=== PATIENT | female | born 1985 | race African-American/Black ===

== ENCOUNTER 2017-07-11 19:45 | Observation (INO) | payer OTHER ==
[~2017-07-11] VITALS: Ht 149.9 cm; Wt 50.8 kg
[2017-07-11 20:32] LABS: BASOPHILS # (AUTO) 0.1 (0.0-0.1); BASOPHILS % 0.5 % (0.0-1.0); EOSINOPHILS # (AUTO) 0.2 (0.0-0.4); EOSINOPHILS % 2.3 % (0.0-6.0); HEMATOCRIT 32.1 % (34.2-44.1); HEMOGLOBIN 9.1 g/dL (12.0-16.0); LYMPHOCYTES # (AUTO) 3.1 (1.0-3.2); LYMPHOCYTES % 30.5 % (18.0-39.1); MEAN CORPUSCULAR HGB CONC 28.3 g/dL (31-35); MEAN CORPUSCULAR VOLUME 70.4 fL (81-99); MONOCYTES # (AUTO) 0.6 (0.2-0.8); NEUTROPHILS # (AUTO) 6.2 (2.1-6.9); NEUTROPHILS % 60.4 % (38.7-80.0); PLATELET COUNT 452 x10e3/uL (140-360); RED BLOOD COUNT 4.56 x10e6/uL (3.6-5.1); RED CELL DISTRIBUTION WIDTH 17.7 % (11.7-14.4)
[2017-07-11 20:36] LABS: BILIRUBIN,URINE NEGATIVE (NEGATIVE); CLARITY,URINE CLEAR (CLEAR); COLOR,URINE YELLOW (YELLOW); KETONES,URINE NEGATIVE (NEGATIVE); LEUKOCYTE ESTERASE ,URINE TRACE (NEGATIVE); NITRITE,URINE NEGATIVE (NEGATIVE); URINE UROBILINOGEN 0.2 mg/dL (0.2 - 1)
[2017-07-11 20:38] LABS: PROTEIN,URINE DIPSTICK 1+ (NEGATIVE)
[2017-07-11 20:46] LABS: INR 1.13; PROTHROMBIN TIME 13.6 seconds (11.9-14.5)
[2017-07-11 20:47] LABS: PARTIAL THROMBOPLASTIN TIME 31.8 seconds (23.8-35.5)
[2017-07-11 20:54] LABS: BACTERIA,URINE FEW /HPF; EPITHELIAL CELLS,URINE FEW /LPF
[2017-07-11 20:55] LABS: ALANINE AMINOTRANSFERASE 11 IU/L (0-55); ALBUMIN/GLOBULIN RATIO 0.9 (0.8-2.0); ALKALINE PHOSPHATASE 89 IU/L (40-150); ANION GAP 13.8 mmol/L (8-16); BLOOD UREA NITROGEN 7 mg/dL (7-26); BUN/CREATININE RATIO 9 (6-25); CALCIUM 9.4 mg/dL (8.4-10.2); CARBON DIOXIDE 22 mmol/L (22-29); CHLORIDE 108 mmol/L (98-107); CREATININE, SERUM 0.79 mg/dL (0.57-1.11); EST GLOMERULAR FILTRATION RATE > 60 ML/MIN (60-); GLUCOSE 100 mg/dL (74-118); POTASSIUM 3.8 mmol/L (3.5-5.1); SODIUM 140 mmol/L (136-145)
[2017-07-11] MEDS ORDERED: NORCO 7.5-3251 EACH PO (21:28)
[2017-07-11] MEDS ORDERED: PROPRANOLOL HCL10 MG PO (21:28)
[2017-07-11] MEDS: SODIUM CHLORIDE 0.9% 1000ML 1,000 ML IV SCH (21:42)
[2017-07-11 22:27] VITALS: BP 136/78
[2017-07-11] MEDS: MORPHINE SULFATE 2 MG/ML SYR IV PRN (23:45)
[2017-07-11] MEDS: CEFOXITIN SOD 1 GM VIAL IV SCH (23:45)
[2017-07-11] MEDS: ONDANSETRON HCL INJ 2 MG/ML VIAL IV PRN (23:46)
[2017-07-12] VITALS (9 sets, daily range): BP systolic 108–136; BP diastolic 64–87
[2017-07-12] MEDS ORDERED: CEFOXITIN 1GM/ DEXTROSE 50ML 50 ML IV SCH
[2017-07-12] MEDS: CEFOXITIN SOD 1 GM VIAL IV SCH ×4 (05:14→23:56)
[2017-07-12] MEDS: SODIUM CHLORIDE 0.9% 1000ML 1,000 ML IV SCH ×2 (05:20→12:22)
[2017-07-12] MEDS: MORPHINE SULFATE 2 MG/ML SYR IV PRN ×2 (05:21→15:56)
[2017-07-12] MEDS: ONDANSETRON HCL INJ 2 MG/ML VIAL IV PRN ×2 (05:21→12:22)
[2017-07-12] MEDS ORDERED: BUPIVACAINE 0.25% 30ML SDV INJ ONE (09:51)
[2017-07-12] MEDS ORDERED: HYDROGEN PEROXIDE 120 ML BTL ONE (09:51)
[2017-07-12] MEDS ORDERED: LIDOCAINE 1% W/EPINEPHRINE 20 ML VIAL ONE (09:51)
[2017-07-12] MEDS ORDERED: LIDOCAINE JELLY 2% 10ML URO-JET ONE (09:51)
[2017-07-12] MEDS ORDERED: GELATIN SPONGE SZ 100 ONE (09:51)
[2017-07-12] MEDS ORDERED: HYDROCODONE/APAP 7.5MG-325MG 1 EA TAB PO PRN (11:00)
[2017-07-12] MEDS ORDERED: ESMOLOL HCL 100MG/10ML 10 MG/ML VIAL ONE (11:10)
[2017-07-12] MEDS ORDERED: MEPERIDINE HCL INJ 50 MG/ML INJ ONE (11:16)
--- NOTE | 2017-07-12 11:36 | Operative Report ---
DATE OF PROCEDURE: July 12, 2017 PREOPERATIVE DIAGNOSIS: Thrombosed external hemorrhoid. POSTOPERATIVE DIAGNOSIS: Thrombosed external hemorrhoid. PROCEDURE PERFORMED: Rectal examination under anesthesia, anoscopy and hemorrhoidectomy at 7 o'clock. ANESTHESIA: General endotracheal. DRAINS: None. COMPLICATIONS: None. INDICATIONS AND FINDINGS: Patient is a 32-year-old female admitted with thrombosed external hemorrhoid. She has been complaining of severe pain and difficulties with moving her bowels. The patient was scheduled by her GI doctor for a colonoscopy this Thursday; however, because of the pain and swelling, she decided to go to an emergency room, where she was then sent home and asked to follow up with her GI. She immediately called her GI who asked her to come to [facility]. When I saw the patient, she had already been admitted with a diagnosis of external thrombosed hemorrhoid. INTRAOPERATIVE FINDINGS: The patient had thrombosed external hemorrhoid at 7 o'clock. There was no evidence of anal fissure. Anoscopy revealed no lesions. There were some internal hemorrhoids that were nonbleeding. DESCRIPTION OF PROCEDURE: With the patient on the operative table in the supine position, after administration of general anesthesia , she was placed in the lithotomy position, prepped and draped for hemorrhoidectomy. The rectal examination revealed no fissures. Anal block was given with a mixture of 0.5% Marcaine with 1% Xylocaine with epinephrine. A total of 20 mL total were given as an anal block. Then the anoscope was introduced in the anal canal, and Betadine packing was placed there. Again, findings as noted above. We did not see any evidence of fissure or actual bleeding. We went ahead and put an apical stitch in the hemorrhoidal group at 7 o'clock with 2-0 Vicryl. Then we excised the hemorrhoid distal to that, removing all the clot. Then we interrupted the mucosa with a series of 3-0 Vicryl stitches. The packing was then removed, and a dressing was placed with Gelfoam and 2% Xylocaine viscous. The patient tolerated the procedure well and was taken to recovery room in stable condition. Job#: [id number]
[2017-07-12] MEDS: PROPRANOLOL HCL 10 MG TAB PO SCH (16:58)
--- NOTE | 2017-07-12 17:04 | History and Physical ---
PRIMARY CARE PHYSICIAN: Patient does not recall. CHIEF COMPLAINT: Pain with defecation. HISTORY OF PRESENT ILLNESS: This is a 32-year-old woman with a history of prediabetes and chronic anemia, who underwent hysterectomy on 07/01/2017, subsequently developing pain with defecation and unable to sit. Therefore, she came to the hospital. Here, she was found to have thrombosed external hemorrhoid. She underwent surgical management. Now, the patient's pain is about 4/10. Having some difficulty with urination. Denies any chest pain or shortness of breath. PAST MEDICAL HISTORY: Prediabetes, hypertension, chronic anemia, status post hysterectomy on 07/01/2017, external hemorrhoids. PAST SURGICAL HISTORY: Hysterectomy on 07/01/2017, also appendectomy, x2, endometrial ablation. ALLERGIES: PER ELECTRONIC MEDICAL RECORD. FAMILY HISTORY/SOCIAL HISTORY: The patient is . She has 3 children. No alcohol, illicits or cigarettes. MEDICATIONS: Per electronic medical record. REVIEW OF SYSTEMS: Denies any dizziness or chest pain. PHYSICAL EXAMINATION VITAL SIGNS: Have been reviewed. GENERAL: A tired-appearing woman resting in bed. HEENT: Anicteric. Pupils are responsive to light. No oral lesions. CARDIOVASCULAR: Normal S1 and S2. LUNGS: Bilateral breath sounds. ABDOMEN: Soft, nontender, nondistended. BUTTOCK REGION: Dressing in place, clean and dry. SKIN: Dry. PSYCHIATRIC: Normal affect. NEUROLOGIC: Alert and oriented x3. LABS: Reviewed. MEDICATIONS: Reviewed. ASSESSMENT AND PLAN: This is a 32-year-old woman. 1. Thrombosed external hemorrhoids, status post surgical management. Continue pain control. Continue IV fluids. 2. Microcytic anemia. Will follow up hemoglobin count in the morning. 3. Urinary tract infection. Continue cefoxitin. 4. Insomnia. Will give Ambien. 5. Prophylaxis. Will use SCD and Pepcid. 6. Disposition: Will add Flomax for her urinary discomfort at this time and difficulty with urination. Will obtain labs in the morning. Job#: [id number]
[2017-07-12] MEDS ORDERED: ONDANSETRON HCL INJ 2 MG/ML VIAL ONE (17:11)
[2017-07-12] MEDS ORDERED: NEOSTIGMINE 5 MG/5ML SYR ONE (17:11)
[2017-07-12] MEDS ORDERED: DESFLURANE 240 ML BTL INH ONE (17:11)
[2017-07-12] MEDS ORDERED: LIDOCAINE HCL 2% LOCAL INJ 5 ML SDV VIAL INJ ONE (17:11)
[2017-07-12] MEDS ORDERED: GLYCOPYRROLATE INJ 1MG/ 5 ML SYR ONE (17:11)
[2017-07-12] MEDS ORDERED: PROPOFOL IV EMULSION 10 MG/ML 20 ML VIAL ONE (17:11)
[2017-07-12] MEDS ORDERED: DEXAMETHASONE SOD PHOS INJ 4 MG/ML VIAL ONE (17:11)
[2017-07-12] MEDS ORDERED: MIDAZOLAM HCL 2 MG/2 ML VIAL ONE (17:33)
[2017-07-12] MEDS ORDERED: FENTANYL CITRATE/PF 100MCG/2 ML INJ ONE (17:33)
[2017-07-12] MEDS: TAMSULOSIN HCL 0.4 MG CAP PO SCH (20:18)
[2017-07-12] MEDS: HYDROCODONE/APAP 7.5MG-325MG 1 EA TAB PO PRN (20:19)
[2017-07-12] MEDS: ZOLPIDEM TARTRATE 5 MG TAB PO SCH (21:25)
[2017-07-13] VITALS (7 sets, daily range): BP systolic 110–142; BP diastolic 59–86
[2017-07-13] MEDS: SODIUM CHLORIDE 0.9% 1000ML 1,000 ML IV SCH (04:00)
[2017-07-13] MEDS: HYDROCODONE/APAP 7.5MG-325MG 1 EA TAB PO PRN ×2 (04:00→20:43)
[2017-07-13] MEDS: CEFOXITIN SOD 1 GM VIAL IV SCH ×3 (06:07→17:10)
[2017-07-13 07:10] LABS: BASOPHILS % 0.1 % (0.0-1.0); EOSINOPHILS % 0.5 % (0.0-6.0); HEMATOCRIT 23.4 % (34.2-44.1); LYMPHOCYTES # (AUTO) 2.3 (1.0-3.2); LYMPHOCYTES % 26.1 % (18.0-39.1); MEAN CORPUSCULAR HEMOGLOBIN 19.6 pg (28-32); MEAN CORPUSCULAR HGB CONC 28.2 g/dL (31-35); MEAN CORPUSCULAR VOLUME 69.6 fL (81-99); MONOCYTES # (AUTO) 0.6 (0.2-0.8); MONOCYTES % 6.8 % (4.4-11.3); NEUTROPHILS # (AUTO) 5.8 (2.1-6.9); PLATELET COUNT 316 x10e3/uL (140-360); RED BLOOD COUNT 3.36 x10e6/uL (3.6-5.1); RED CELL DISTRIBUTION WIDTH 17.4 % (11.7-14.4)
[2017-07-13 07:16] LABS: HEMOGLOBIN 6.6 g/dL (12.0-16.0)
[2017-07-13 07:36] LABS: ANION GAP 10.7 mmol/L (8-16); BLOOD UREA NITROGEN 7 mg/dL (7-26); BUN/CREATININE RATIO 8 (6-25); CALCIUM 8.6 mg/dL (8.4-10.2); CARBON DIOXIDE 22 mmol/L (22-29); CHLORIDE 110 mmol/L (98-107); CREATININE, SERUM 0.84 mg/dL (0.57-1.11); EST GLOMERULAR FILTRATION RATE > 60 ML/MIN (60-); GLUCOSE 87 mg/dL (74-118); POTASSIUM 3.7 mmol/L (3.5-5.1); SODIUM 139 mmol/L (136-145)
[2017-07-13] MEDS ORDERED: SODIUM CHLORIDE 0.9% 250ML 250 ML IV ONE (08:30)
[2017-07-13] MEDS: MORPHINE SULFATE 2 MG/ML SYR IV PRN (09:30)
[2017-07-13] MEDS: ONDANSETRON HCL INJ 2 MG/ML VIAL IV PRN (09:30)
[2017-07-13] MEDS: FAMOTIDINE 20 MG TAB PO SCH ×2 (09:45→17:09)
[2017-07-13] MEDS: PROPRANOLOL HCL 10 MG TAB PO SCH ×2 (09:46→17:14)
[2017-07-13] MEDS ORDERED: SODIUM CHLORIDE 0.9% 250ML 250 ML ONE ×2 (12:25→22:30)
[2017-07-13] MEDS ORDERED: ACETAMINOPHEN/CODEINE 300MG - 30MG TAB PO PRN (16:30)
[2017-07-13] MEDS ORDERED: ACETAMIN/BUTALBITAL/CAFFEINE TAB PO PRN (16:30)
[2017-07-13] MEDS ORDERED: TRAMADOL HCL 50 MG TAB PO PRN (16:30)
[2017-07-13] MEDS ORDERED: ACETAMIN/BUTALBITAL/CAFFEINE TAB PO ONE (17:45)
[2017-07-13 19:19] LABS: BILIRUBIN,URINE NEGATIVE (NEGATIVE); CLARITY,URINE CLEAR (CLEAR); COLOR,URINE YELLOW (YELLOW); KETONES,URINE NEGATIVE (NEGATIVE); LEUKOCYTE ESTERASE ,URINE NEGATIVE (NEGATIVE); NITRITE,URINE NEGATIVE (NEGATIVE); PROTEIN,URINE DIPSTICK NEGATIVE (NEGATIVE); URINE UROBILINOGEN 0.2 mg/dL (0.2 - 1)
[2017-07-13 19:37] LABS: EPITHELIAL CELLS,URINE MODERATE /LPF
[2017-07-13] MEDS: TAMSULOSIN HCL 0.4 MG CAP PO SCH (20:43)
[2017-07-14] VITALS (7 sets, daily range): BP systolic 105–121; BP diastolic 55–83
[2017-07-14] MEDS: CEFOXITIN SOD 1 GM VIAL IV SCH ×5 (01:21→23:00)
[2017-07-14] MEDS: ZOLPIDEM TARTRATE 5 MG TAB PO SCH ×2 (01:21→23:00)
[2017-07-14 06:56] LABS: BASOPHILS % 0.5 % (0.0-1.0); EOSINOPHILS # (AUTO) 0.2 (0.0-0.4); EOSINOPHILS % 2.3 % (0.0-6.0); HEMATOCRIT 32.6 % (34.2-44.1); HEMOGLOBIN 9.8 g/dL (12.0-16.0); LYMPHOCYTES # (AUTO) 1.6 (1.0-3.2); LYMPHOCYTES % 20.5 % (18.0-39.1); MEAN CORPUSCULAR HEMOGLOBIN 21.5 pg (28-32); MEAN CORPUSCULAR HGB CONC 30.1 g/dL (31-35); MEAN CORPUSCULAR VOLUME 71.5 fL (81-99); MONOCYTES # (AUTO) 0.6 (0.2-0.8); MONOCYTES % 7.2 % (4.4-11.3); NEUTROPHILS # (AUTO) 5.5 (2.1-6.9); NEUTROPHILS % 69.1 % (38.7-80.0); PLATELET COUNT 275 x10e3/uL (140-360); RED BLOOD COUNT 4.56 x10e6/uL (3.6-5.1); RED CELL DISTRIBUTION WIDTH 17.1 % (11.7-14.4)
[2017-07-14 07:23] LABS: ANION GAP 14.2 mmol/L (8-16); BLOOD UREA NITROGEN 8 mg/dL (7-26); BUN/CREATININE RATIO 11 (6-25); CARBON DIOXIDE 22 mmol/L (22-29); CHLORIDE 110 mmol/L (98-107); CREATININE, SERUM 0.72 mg/dL (0.57-1.11); EST GLOMERULAR FILTRATION RATE > 60 ML/MIN (60-); GLUCOSE 83 mg/dL (74-118); MAGNESIUM 1.9 MG/DL (1.3-2.1); PHOSPHORUS 3.9 MG/DL (2.3-4.7); POTASSIUM 4.2 mmol/L (3.5-5.1); SODIUM 142 mmol/L (136-145)
[2017-07-14] MEDS: PROPRANOLOL HCL 10 MG TAB PO SCH ×2 (08:34→17:14)
[2017-07-14] MEDS: FAMOTIDINE 20 MG TAB PO SCH ×2 (08:34→17:13)
[2017-07-14] MEDS: HYDROCODONE/APAP 7.5MG-325MG 1 EA TAB PO PRN ×2 (08:35→20:30)
[2017-07-14] MEDS: TAMSULOSIN HCL 0.4 MG CAP PO SCH (20:30)
[2017-07-15] VITALS (7 sets, daily range): BP systolic 104–126; BP diastolic 63–78
[2017-07-15] MEDS: CEFOXITIN SOD 1 GM VIAL IV SCH ×2 (05:38→11:57)
[2017-07-15 06:30] LABS: BASOPHILS % 0.4 % (0.0-1.0); EOSINOPHILS # (AUTO) 0.3 (0.0-0.4); EOSINOPHILS % 3.4 % (0.0-6.0); HEMATOCRIT 35.5 % (34.2-44.1); HEMOGLOBIN 10.6 g/dL (12.0-16.0); LYMPHOCYTES # (AUTO) 1.9 (1.0-3.2); LYMPHOCYTES % 26.2 % (18.0-39.1); MEAN CORPUSCULAR HEMOGLOBIN 21.4 pg (28-32); MEAN CORPUSCULAR HGB CONC 29.9 g/dL (31-35); MEAN CORPUSCULAR VOLUME 71.6 fL (81-99); MONOCYTES # (AUTO) 0.8 (0.2-0.8); MONOCYTES % 10.3 % (4.4-11.3); NEUTROPHILS # (AUTO) 4.3 (2.1-6.9); NEUTROPHILS % 59.6 % (38.7-80.0); PLATELET COUNT 293 x10e3/uL (140-360); RED BLOOD COUNT 4.96 x10e6/uL (3.6-5.1); RED CELL DISTRIBUTION WIDTH 17.5 % (11.7-14.4)
[2017-07-15 07:00] LABS: ANION GAP 13.1 mmol/L (8-16); BLOOD UREA NITROGEN 8 mg/dL (7-26); BUN/CREATININE RATIO 11 (6-25); CALCIUM 9.4 mg/dL (8.4-10.2); CARBON DIOXIDE 22 mmol/L (22-29); CHLORIDE 110 mmol/L (98-107); CREATININE, SERUM 0.74 mg/dL (0.57-1.11); EST GLOMERULAR FILTRATION RATE > 60 ML/MIN (60-); GLUCOSE 88 mg/dL (74-118); POTASSIUM 4.1 mmol/L (3.5-5.1); SODIUM 141 mmol/L (136-145)
[2017-07-15] MEDS: PROPRANOLOL HCL 10 MG TAB PO SCH (09:06)
[2017-07-15] MEDS: FAMOTIDINE 20 MG TAB PO SCH (09:06)
[2017-07-15] MEDS ORDERED: FERROUS SULFAT325 MG PO (09:59)
[2017-07-15] MEDS ORDERED: FLOMAX0.4 MG PO (09:59)
[2017-07-15] MEDS ORDERED: PROPRANOLOL HCL10 MG PO (09:59)
[2017-07-15] MEDS ORDERED: MULTI-VITAMIN1 EACH PO (09:59)
[2017-07-15] MEDS ORDERED: CEFTIN PO (09:59)
[2017-07-15] MEDS ORDERED: AMBIEN5 MG PO (09:59)
[2017-07-15] MEDS ORDERED: ASCORBIC ACID500 M2 PO (09:59)
--- NOTE | 2017-07-16 13:29 | Discharge Summary ---
ADMISSION DIAGNOSES: 1. Thrombosed external hemorrhoids, status post hemorrhoidectomy. 2. Microcytic anemia. 3. Urinary tract infection. 4. Insomnia. DISCHARGE DIAGNOSES: 1. Thrombosed external hemorrhoids, status post hemorrhoidectomy. 2. Microcytic anemia. 3. Urinary tract infection. 4. Insomnia. 5. Dizziness. 6. Vaginal bleeding. HISTORY: Patient has a history of prediabetes, hypertension, chronic anemia, status post hysterectomy on July 01, 2017, external hemorrhoids. Surgical history of hysterectomy, appendectomy, x2, endometrial ablation. HOSPITAL COURSE: A 32-year-old female presented status post hysterectomy on July 01, 2017. She was developing pain with defecation and unable to sit along with intermittent vaginal bleeding. She says she went to a hospital in [place], but they continued to send her home before she came to [place] for admission. On admission, she was found to have thrombosed external hemorrhoids. Hemorrhoidectomy was performed on July 12, 2017. Pain was controlled. Bleeding slowed, although it continued. On July 13, patient received 2 units of blood as her hemoglobin dropped to 6.6. Original UA showed blood, leukocytes, RBC, WBC, and few bacteria. Culture was pending at time of discharge. Patient was receiving cefoxitin IV with no fevers and no complaints. She was sent home on 3 additional days of Ceftin for the UTI. Vital signs were stable and patient's labs were stable. WBC of 7.28, hemoglobin of 10.6, hematocrit 35.5. Sodium 141, potassium 4.1, creatinine of 0.74. A1c was found to be 5.1. Patient was taking propranolol 5 b.i.d. During hospitalization, her pulse remained in the low 100s. At time of discharge, propranolol was increased to 10 b.i.d. Patient was also sent home on iron, vitamins, ascorbic acid, and Ceftin. Patient also complained of feeling of incomplete bladder emptying. Two postvoid residuals were done, which showed less than 40 mL in the bladder. Patient will follow up with cardiology appointment today as already scheduled, urology as needed, and FLIGHT INFORMATION EXPEDITER as needed. Dictated by Sherly Garcia, CMM TECHNICIAN JEB SCOTT MD Job#: [id number]
== END 2017-07-15 17:30 | disposition home or self-care (01) ==
LOC: ER 19:45 → MED/SURG3 21:49
PROVIDERS: ADMIT Internal Medicine; ATTEND Internal Medicine
DX: K64.5 Perianal venous thrombosis (principal); R73.09 Other abnormal glucose; I10 Essential (primary) hypertension; D50.9 Iron deficiency anemia, unspecified; N39.0 Urinary tract infection, site not specified; G47.00 Insomnia, unspecified; K64.8 Other hemorrhoids; R33.9 Retention of urine, unspecified; R42 Dizziness and giddiness; N93.9 Abnormal uterine and vaginal bleeding, unspecified; Z90.79 Acquired absence of other genital organ(s); Z90.710 Acquired absence of both cervix and uterus
CPT/HCPCS: 36415 ×4; 36430; 46320; 80048 ×3; 80053; 81001 ×2; 83036; 83735 ×2; 84100; 85025 ×4; 85610; 85730; 86850; 86900; 86920; 87086 ×2; 88304; 96360; 99284; G0378 ×5; J0694 ×5; J1100; J2001; J2175; J2250; J2270 ×3; J2405 ×3; J7030 ×3; J7050; P9016